=== PATIENT | female | born 1985 | race Caucasian/White ===

== ENCOUNTER → 2016-09-05 | Outpatient (CLI) | payer BC, OTHER | LOC: MW.CHOBGYN 08:17 | PROVIDERS: ATTEND Obstetrics & Gynecology | DX: Z34.90 Encounter for supervision of normal pregnancy, unspecified, unspecified trimester (principal) | CPT/HCPCS: 36415; 81003; 82950; 85027 ==

== ENCOUNTER → 2016-10-02 | Outpatient (CLI) | payer BC, OTHER | LOC: MW.CHOBGYN 10:46 | PROVIDERS: ATTEND Obstetrics & Gynecology | DX: R21 Rash and other nonspecific skin eruption (principal) | CPT/HCPCS: 36415; 83789 ==

== ENCOUNTER 2016-10-10 16:15 | Outpatient (CLI) | payer BC, OTHER | END 2016-10-10 18:03 | disposition home or self-care (01) | LOC: MW.OBCHECK 16:15 → MW.OB 16:19 → MW.OBCHECK 18:03 | PROVIDERS: ATTEND Obstetrics & Gynecology | DX: Z34.90 Encounter for supervision of normal pregnancy, unspecified, unspecified trimester (principal); O16.3 Unspecified maternal hypertension, third trimester; Z3A.32 32 weeks gestation of pregnancy | CPT/HCPCS: 36415; 59025; 80076; 81003; 83789 ==

== ENCOUNTER → 2016-10-10 | Outpatient (CLI) | payer BC, OTHER | END | disposition home or self-care (01) | LOC: MW.CHOBGYN 15:27 | PROVIDERS: ATTEND Obstetrics & Gynecology | DX: Z34.90 Encounter for supervision of normal pregnancy, unspecified, unspecified trimester (principal) | CPT/HCPCS: 81003 ==

== ENCOUNTER 2016-10-17 09:14 | Outpatient (CLI) | payer BC, OTHER | END 2016-10-17 11:10 | disposition home or self-care (01) | LOC: MW.OBCHECK 09:14 → MW.OB 09:15 → MW.OBCHECK 11:10 | PROVIDERS: ATTEND Obstetrics & Gynecology | DX: O26.819 Pregnancy related exhaustion and fatigue, unspecified trimester (principal); K83.1 Obstruction of bile duct | CPT/HCPCS: 36415; 59025; 83789 ==

== ENCOUNTER 2016-10-24 09:05 | Outpatient (CLI) | payer OTHER | END 2016-10-24 10:40 | disposition home or self-care (01) | LOC: MW.OBCHECK 09:05 | PROVIDERS: ATTEND Obstetrics & Gynecology | DX: Z34.83 Encounter for supervision of other normal pregnancy, third trimester (principal) | CPT/HCPCS: 59025 ==

== ENCOUNTER → 2016-10-31 | Outpatient (CLI) | payer OTHER | END | disposition home or self-care (01) | LOC: MW.CHOBGYN 15:27 | PROVIDERS: ATTEND Obstetrics & Gynecology | DX: Z34.90 Encounter for supervision of normal pregnancy, unspecified, unspecified trimester (principal) | CPT/HCPCS: 81003; 87081 ==

== ENCOUNTER 2016-11-09 14:28 | Outpatient (CLI) | payer OTHER | END 2016-11-09 15:07 | disposition home or self-care (01) | LOC: MW.OBCHECK 14:28 → MW.OB 14:28 → MW.OBCHECK 15:07 | PROVIDERS: ATTEND Obstetrics & Gynecology | DX: O26.619 Liver and biliary tract disorders in pregnancy, unspecified trimester (principal); K83.1 Obstruction of bile duct | CPT/HCPCS: 36415; 59025; 83789 ==

== ENCOUNTER → 2016-11-09 | Outpatient (CLI) | payer OTHER | LOC: MW.CHOBGYN 15:39 | PROVIDERS: ATTEND Obstetrics & Gynecology | DX: O26.619 Liver and biliary tract disorders in pregnancy, unspecified trimester (principal); K83.1 Obstruction of bile duct | CPT/HCPCS: 83789 ==

== ENCOUNTER 2016-11-24 00:35 | Inpatient (IN) | payer OTHER ==
[2016-11-24] MEDS ORDERED: Water For Irrigation,Sterile 1,000 ML Container IRR PRN (01:42)
[2016-11-24] MEDS ORDERED: Sodium Chloride 0.9% 10 ML Syringe FLUSH PRN (01:42)
[2016-11-24] MEDS ORDERED: Misoprostol 200 MCG Tab PO PRN (01:42)
[2016-11-24] MEDS ORDERED: Butorphanol 1 MG/ML SDV IVPUSH PRN (01:42)
[2016-11-24] MEDS ORDERED: Sodium Chloride 0.9% 2.5 ML Syringe FLUSH PRN (01:42)
[2016-11-24] MEDS ORDERED: Lidocaine 1% 50 ML MDV INJECT PRN (01:42)
[2016-11-24] MEDS ORDERED: Carboprost Tromethamine 250 MCG/1 ML Amp IM PRN (01:42)
[2016-11-24] MEDS ORDERED: Methylergonovine 0.2 MG/1 ML Amp IM PRN (01:42)
[2016-11-24] MEDS ORDERED: Nalbuphine 10 MG/1 ML Vial IVPUSH PRN (01:42)
[2016-11-24] MEDS ORDERED: Oxytocin/Lactated Ringers 30 UNIT/500 ML BAG IV SCH (01:45)
[2016-11-24] MEDS: Lactated Ringers 1,000 ML IV SCH ×3 (02:09→03:43)
--- NOTE | 2016-11-24 02:24 | PCM.LDHP ---
L&D History of Present Illness - General Date of Service: 11/24/16 Admit Problem/Dx: Patient Status Order with Admit Dx/Problem 11/24/16 01:43 Patient Status [ADT] Routine Admission Diagnosis/Problem Admission Diagnosis/Problem Source of Information: Patient History Limitations: Reports: No Limitations - History of Present Illness Improves with: Reports: None Worsens with: Reports: None Associated Symptoms: Reports: N - Related Data Allergies/Adverse Reactions: Allergies Allergy/AdvReac Type Severity Reaction Status Date / Time amoxicillin Allergy Rash Verified 10/10/16 16:45 H&P Review of Systems - Review of Systems: Review Of Systems: See Below General: Reports: No Symptoms HEENT: Reports: No Symptoms Pulmonary: Reports: No Symptoms Cardiovascular: Reports: No Symptoms Gastrointestinal: Reports: No Symptoms Genitourinary: Reports: No Symptoms Musculoskeletal: Reports: No Symptoms Skin: Reports: No Symptoms Psychiatric: Reports: No Symptoms Neurological: Reports: No Symptoms Hematologic/Lymphatic: Reports: No Symptoms Immunologic: Reports: No Symptoms L&D Exam - Exam Exam: See Below - Vital Signs Weight: 70.307 kg - OB Specific Contraction Intensity: Moderate Movement: Active Heart Tones: Present Heart Rate (FHR) Variability: Moderate (6-25 bmp) Presentation: Vertex - Sanchez Score Sanchez Score Cervix Position: Anterior Sanchez Score Effacement: >80% Sanchez Score Dilation: 3-4 cm - Patient Data Lab Results last 24 hrs: Laboratory Results - last 24 hr 11/24/16 Range/Units 02:09 WBC 17.02 H (4.0-11.0) K/uL RBC 3.71 L (4.30-5.90) M/uL Hgb 12.0 (12.0-16.0) g/dL Hct 35.4 L (36.0-46.0) % MCV 95.4 (80.0-98.0) fL MCH 32.3 H (27.0-32.0) pg MCHC 33.9 (31.0-37.0) g/dL RDW Std Deviation 45.1 (28.0-62.0) fl RDW Coeff of Cesar 13 (11.0-15.0) % Plt Count 204 (150-400) K/uL MPV 9.10 (7.40-12.00) fL Result Diagrams: 11/24/16 02:09 Problem List Initiated/Reviewed/Updated: Yes Orders Last 24hrs: Active Orders 24 hr Category Date Time Status Patient Status [ADT] Routine ADT 11/24/16 01:43 Active Heart Tones [RC] CONTINUOUS Care 11/24/16 01:43 Active Non Stress Test [RC] PER UNIT ROUTINE Care 11/24/16 01:43 Active May Shower [RC] ASDIRECTED Care 11/24/16 01:43 Active Notify Provider [RC] PRN Care 11/24/16 01:43 Active Up ad Brigitte [RC] ASDIRECTED Care 11/24/16 01:43 Active Vaginal Exam [RC] PRN Care 11/24/16 01:43 Active Vital Signs [RC] PER UNIT ROUTINE Care 11/24/16 01:43 Active TYPE AND SCREEN [BBK] Routine Lab 11/24/16 02:09 Received Butorphanol [Stadol] Med 11/24/16 01:42 Active 1 mg IVPUSH Q1H PRN Carboprost Tromethamine [Hemabate DS] Med 11/24/16 01:42 Active 250 mcg IM ASDIRECTED PRN Lactated Ringers [Ringers, Lactated] 1,000 ml Med 11/24/16 01:45 Active IV ASDIRECTED Lidocaine 1% [Xylocaine 1%] Med 11/24/16 01:42 Active 50 ml INJECT .ONCE PRN Methylergonovine [Methergine] Med 11/24/16 01:42 Active 0.2 mg IM ASDIRECTED PRN Misoprostol [Cytotec] Med 11/24/16 01:42 Active 200 mcg PO .ONCE PRN Nalbuphine [Nubain] Med 11/24/16 01:42 Active 10 mg IVPUSH Q1H PRN Oxytocin/Lactated Ringers [Pitocin in LR 30 Units/500 Med 11/24/16 01:45 Active ML] 30 unit in 500 ml IV TITRATE Sodium Chloride 0.9% [Saline Flush] Med 11/24/16 01:42 Active 10 ml FLUSH ASDIRECTED PRN Sodium Chloride 0.9% [Saline Flush] Med 11/24/16 01:42 Active 2.5 ml FLUSH ASDIRECTED PRN Water For Irrigation,Sterile [Sterile Water for Med 11/24/16 01:42 Active Irrigation] 1,000 ml IRR ASDIRECTED PRN Scalp Electrode [WOMSER] Per Unit Routine Oth 11/24/16 01:43 Ordered Peripheral IV Insertion Adult [OM.PC] Routine Oth 11/24/16 01:43 Ordered Resuscitation Status Routine Resus Stat 11/24/16 01:42 Ordered Medication Orders Butorphanol Tartrate (Stadol) 1 mg IVPUSH Q1H PRN PRN Reason: Pain Carboprost Tromethamine (Hemabate Ds) 250 mcg IM ASDIRECTED PRN PRN Reason: Post Hemorrhage Lactated Ringer's (Ringers, Lactated) 1,000 mls @ 150 mls/hr IV ASDIRECTED LUCINDA Oxytocin/Lactated Ringer's (Pitocin In Lr 30 Units/500 Ml) 30 unit in 500 mls @ 2 mls/hr IV TITRATE LUCINDA; 2 MUNITS/MIN PRN Reason: Protocol Stop: 11/25/16 01:44 Lidocaine HCl (Xylocaine 1%) 50 ml INJECT .ONCE PRN PRN Reason: Laceration repair Methylergonovine Maleate (Methergine) 0.2 mg IM ASDIRECTED PRN PRN Reason: Post Hemorrhage Misoprostol (Cytotec) 200 mcg PO .ONCE PRN PRN Reason: Post Hemorrhage Nalbuphine HCl (Nubain) 10 mg IVPUSH Q1H PRN PRN Reason: Pain (severe 7-10) Stop: 11/24/16 03:43 Sodium Chloride (Saline Flush) 10 ml FLUSH ASDIRECTED PRN PRN Reason: Keep Vein Open Sodium Chloride (Saline Flush) 2.5 ml FLUSH ASDIRECTED PRN PRN Reason: Keep Vein Open Sterile Water (Sterile Water For Irrigation) 1,000 ml IRR ASDIRECTED PRN PRN Reason: delivery Assessment/Plan Comment:: Term in active labor.
--- NOTE | 2016-11-24 02:42 | PCM.PREANE ---
Preanesthetic Assessment - Anesthesia/Transfusion/Family Hx Anesthesia History: No Prior Anesthesia Family History of Anesthesia Reaction: No Transfusion History: No Prior Transfusion(s) - Review of Systems General: No Symptoms Pulmonary: No Symptoms Cardiovascular: No Symptoms Gastrointestinal: No symptoms Neurological: No Symptoms Other: Reports: Thyroid Problems (Evaluated for cholelithiasis during , ruled out by specialist) - Physical Assessment NPO Status Date: 11/24/16 NPO Status Time: 03:20 (cl liquids now) Height: 1.68 m Weight: 70.307 kg ASA Class: 2 Mental Status: Alert & Oriented x3 Dentition: Reports: Normal Dentition Thyro-Mental Finger Breadths: 3 Mouth Opening Finger Breadths: 3 ROM/Head Extension: Full Lungs: Clear to auscultation, Normal respiratory effort Cardiovascular: Regular Rate, Regular Rhythm - Lab Values: Laboratory Last Values WBC 17.02 K/uL (4.0-11.0) H 11/24/16 02:09 RBC 3.71 M/uL (4.30-5.90) L 11/24/16 02:09 Hgb 12.0 g/dL (12.0-16.0) 11/24/16 02:09 Hct 35.4 % (36.0-46.0) L 11/24/16 02:09 MCV 95.4 fL (80.0-98.0) 11/24/16 02:09 MCH 32.3 pg (27.0-32.0) H 11/24/16 02:09 MCHC 33.9 g/dL (31.0-37.0) 11/24/16 02:09 RDW Std Deviation 45.1 fl (28.0-62.0) 11/24/16 02:09 RDW Coeff of Cesar 13 % (11.0-15.0) 11/24/16 02:09 Plt Count 204 K/uL (150-400) 11/24/16 02:09 MPV 9.10 fL (7.40-12.00) 11/24/16 02:09 - Allergies Allergies/Adverse Reactions: Allergies Allergy/AdvReac Type Severity Reaction Status Date / Time amoxicillin Allergy Rash Verified 10/10/16 16:45 - Blood Blood Available: Yes Product(s) Available: PRBC - Acknowledgements Anesthesia Type Planned: Epidural Pt an Appropriate Candidate for the Planned Anesthesia: Yes Alternatives and Risks of Anesthesia Discussed w Pt/Guardian: Yes Pt/Guardian Understands and Agrees with Anesthesia Plan: Yes PreAnesthesia Questionnaire Gastrointestinal History: Reports: Cholelithiasis (Evaluated for cholelithiasis during , ruled out by specialist) 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: , Other (See Below) Other OB/BYN History: possible cholestasis of - CURRENT (IN HOUSE) MEDS Current Meds: Current Medications Butorphanol Tartrate (Stadol) 1 mg IVPUSH Q1H PRN PRN Reason: Pain Carboprost Tromethamine (Hemabate Ds) 250 mcg IM ASDIRECTED PRN PRN Reason: Post Hemorrhage Lactated Ringer's (Ringers, Lactated) 1,000 mls @ 150 mls/hr IV ASDIRECTED LUCINDA Oxytocin/Lactated Ringer's (Pitocin In Lr 30 Units/500 Ml) 30 unit in 500 mls @ 2 mls/hr IV TITRATE LUCINDA; 2 MUNITS/MIN PRN Reason: Protocol Stop: 11/25/16 01:44 Lidocaine HCl (Xylocaine 1%) 50 ml INJECT .ONCE PRN PRN Reason: Laceration repair Methylergonovine Maleate (Methergine) 0.2 mg IM ASDIRECTED PRN PRN Reason: Post Hemorrhage Misoprostol (Cytotec) 200 mcg PO .ONCE PRN PRN Reason: Post Hemorrhage Nalbuphine HCl (Nubain) 10 mg IVPUSH Q1H PRN PRN Reason: Pain (severe 7-10) Stop: 11/24/16 03:43 Sodium Chloride (Saline Flush) 10 ml FLUSH ASDIRECTED PRN PRN Reason: Keep Vein Open Sodium Chloride (Saline Flush) 2.5 ml FLUSH ASDIRECTED PRN PRN Reason: Keep Vein Open Sterile Water (Sterile Water For Irrigation) 1,000 ml IRR ASDIRECTED PRN PRN Reason: delivery - Free Text/Narrative Note: Labor Analgesia/Epidural Procedure start date: 11/24/16 time: 0248 Attending provider aware Chart reviewed Permit signed Labs reviewed VS/ FHR reviewed Pt identified/ID band Pt assessed Risks/Benefits discussed and accepted Monitors in place (BP, HR, SPO2) Patient, Site, Procedure Verification, Pause. Pain "10/10" Fluid bolus infused (fluid type and amount): 1000 ml LR infused with infusion continuing Position: Sitting @ 0252 Prep: Betadine X 3 Sterile Drape Intradermal Wheal: 3 ml 1% Lidocaine Regional placement level: L4-5 Needle: 17 g Tuohy Approach: Midline Technique: MALGORZATA glass syringe w 3 ml Sterile water MALGORZATA needle depth: 6 cm Paresthesia: None Fluid Obtained: None Catheter insertion time: 256 Catheter depth at skin: 20 cm Test Dose Time: 256 RX: 3 ml 1.5% lidocaine with 1:200,000 epi Response: Negative Loading dose Time: 8710-8368 RX: 100 mcg fentanyl followed by 10 ml 0.2% ropivacaine in 2-3 ml increments over 10 minutes Pt position: semi fowlers with MYLES Continuous infusion Start Time: 310 RX: 100 ml 0.2% ropivacaine with 200 mcg fentanyl [2mcg/ml] Continuous infusion rate: 8 ml per hr ENTEROSTOMAL THERAPY NURSE bolus option: 5 ml every 15 min Pt response Post procedure pain level: VS and FHR monitored in unit post placement (See OB traceview for documentation. ) Procedure end date: 11/24/16 time: 331
[2016-11-24] MEDS ORDERED: fentaNYL 100 MCG/2 ML SDV ONE (02:46)
[2016-11-24] MEDS ORDERED: Ropivacaine 0.2% 2 MG/ML 20 ML SDV ONE (02:47)
--- NOTE | 2016-11-24 03:22 | PCM.PREANE ---
Preanesthetic Assessment - Anesthesia/Transfusion/Family Hx Anesthesia History: No Prior Anesthesia Family History of Anesthesia Reaction: No Transfusion History: No Prior Transfusion(s) - Review of Systems General: No Symptoms Pulmonary: No Symptoms Cardiovascular: No Symptoms Gastrointestinal: No symptoms Neurological: No Symptoms Other: Reports: None (Evaluated for cholelithiasis in , ruled out by specialist) - Physical Assessment NPO Status Date: 11/24/16 NPO Status Time: 03:17 (cl liquids) Height: 1.68 m Weight: 70.307 kg ASA Class: 2 Mental Status: Alert & Oriented x3 Airway Class: Mallampati = 3 Dentition: Reports: Normal Dentition Thyro-Mental Finger Breadths: 3 Mouth Opening Finger Breadths: 3 ROM/Head Extension: Full Lungs: Clear to auscultation, Normal respiratory effort Cardiovascular: Regular Rate, Regular Rhythm - Lab Values: Laboratory Last Values WBC 17.02 K/uL (4.0-11.0) H 11/24/16 02:09 RBC 3.71 M/uL (4.30-5.90) L 11/24/16 02:09 Hgb 12.0 g/dL (12.0-16.0) 11/24/16 02:09 Hct 35.4 % (36.0-46.0) L 11/24/16 02:09 MCV 95.4 fL (80.0-98.0) 11/24/16 02:09 MCH 32.3 pg (27.0-32.0) H 11/24/16 02:09 MCHC 33.9 g/dL (31.0-37.0) 11/24/16 02:09 RDW Std Deviation 45.1 fl (28.0-62.0) 11/24/16 02:09 RDW Coeff of Cesar 13 % (11.0-15.0) 11/24/16 02:09 Plt Count 204 K/uL (150-400) 11/24/16 02:09 MPV 9.10 fL (7.40-12.00) 11/24/16 02:09 Blood Type A POSITIVE 11/24/16 02:09 Antibody Screen NEGATIVE 11/24/16 02:09 - Allergies Allergies/Adverse Reactions: Allergies Allergy/AdvReac Type Severity Reaction Status Date / Time amoxicillin Allergy Rash Verified 10/10/16 16:45 - Blood Blood Available: Yes Product(s) Available: PRBC - Acknowledgements Anesthesia Type Planned: Epidural Pt an Appropriate Candidate for the Planned Anesthesia: Yes Alternatives and Risks of Anesthesia Discussed w Pt/Guardian: Yes Pt/Guardian Understands and Agrees with Anesthesia Plan: Yes PreAnesthesia Questionnaire Gastrointestinal History: Reports: Cholelithiasis (Evaluated for during , ruled out by specialist) 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: , Other (See Below) Other OB/BYN History: possible cholestasis of - CURRENT (IN HOUSE) MEDS Current Meds: Current Medications Butorphanol Tartrate (Stadol) 1 mg IVPUSH Q1H PRN PRN Reason: Pain Carboprost Tromethamine (Hemabate Ds) 250 mcg IM ASDIRECTED PRN PRN Reason: Post Hemorrhage Lactated Ringer's (Ringers, Lactated) 1,000 mls @ 150 mls/hr IV ASDIRECTED LUCINDA Last Admin: 11/24/16 03:10 Dose: 999 mls/hr Oxytocin/Lactated Ringer's (Pitocin In Lr 30 Units/500 Ml) 30 unit in 500 mls @ 2 mls/hr IV TITRATE LUCINDA; 2 MUNITS/MIN PRN Reason: Protocol Stop: 11/25/16 01:44 Lidocaine HCl (Xylocaine 1%) 50 ml INJECT .ONCE PRN PRN Reason: Laceration repair Methylergonovine Maleate (Methergine) 0.2 mg IM ASDIRECTED PRN PRN Reason: Post Hemorrhage Misoprostol (Cytotec) 200 mcg PO .ONCE PRN PRN Reason: Post Hemorrhage Nalbuphine HCl (Nubain) 10 mg IVPUSH Q1H PRN PRN Reason: Pain (severe 7-10) Stop: 11/24/16 03:43 Sodium Chloride (Saline Flush) 10 ml FLUSH ASDIRECTED PRN PRN Reason: Keep Vein Open Sodium Chloride (Saline Flush) 2.5 ml FLUSH ASDIRECTED PRN PRN Reason: Keep Vein Open Sterile Water (Sterile Water For Irrigation) 1,000 ml IRR ASDIRECTED PRN PRN Reason: delivery Discontinued Medications Fentanyl (Sublimaze) Confirm Administered Dose 100 mcg .ROUTE .STK-MED ONE Stop: 11/24/16 02:47 Ropivacaine/Fentanyl/NS (Fentanyl 2 Mcg-Ropiv 0.2%-Ns) Confirm Administered Dose 100 mls @ as directed .ROUTE .STK-MED ONE Stop: 11/24/16 02:47 Ropivacaine (Naropin 0.2%) Confirm Administered Dose 20 ml .ROUTE .STK-MED ONE Stop: 11/24/16 02:48
[2016-11-24] MEDS ORDERED: Bisacodyl 10 MG Supp RECTAL PRN (12:12)
[2016-11-24] MEDS ORDERED: Witch Hazel Medicated Pads 40/Jar TOP PRN (12:12)
[2016-11-24] MEDS ORDERED: oxyCODONE 5 MG Tab PO PRN (12:12)
[2016-11-24] MEDS ORDERED: Docusate Sodium 100 MG Cap PO PRN (12:12)
[2016-11-24] MEDS ORDERED: Ibuprofen 400 MG Tab PO PRN (12:12)
[2016-11-24] MEDS ORDERED: Lanolin 100% Cream 7 GM Tube TOP PRN (12:12)
[2016-11-24] MEDS ORDERED: Benzocaine/Menthol 20%-0.5% Spray 78 GM Cannister TOP PRN (12:12)
[2016-11-24] MEDS ORDERED: Acetaminophen 500 MG Tab PO PRN ×2 (12:12)
--- NOTE | 2016-11-24 13:03 | PCM48HPAN ---
Post Anesthesia Note - EVALUATION WITHIN 48HRS OF ANESTHETIC Vital Signs in Normal Range: Yes Patient Participated in Evaluation: Yes Respiratory Function Stable: Yes Airway Patent: Yes Cardiovascular Function Stable: Yes Hydration Status Stable: Yes Pain Control Satisfactory: Yes Nausea and Vomiting Control Satisfactory: Yes Mental Status Recovered: Yes - COMMENTS/OBSERVATIONS Free Text/Narrative:: Pt still in bed post delivery, but states she has good feeling back in her legs and happy with epidural. No apparent anesthesia complications.
[2016-11-24] MEDS: Ibuprofen 800 MG Tab PO PRN ×2 (14:54→22:05)
--- NOTE | 2016-11-24 19:48 | OR ---
SURGEON: Gautam Mike MD DATE OF PROCEDURE: DELIVERY NOTE: Ms. Clark is a 31-year-old patient. She is followed in our clinic. She is 39 weeks plus. Her care was complicated by elevated bile acid, however, she responded to the medication. The patient was admitted early of this morning of November 24 with an active labor. At the time of admission, she was 5 cm complete vertex and 0 to -1 station, intact membranes. The patient was admitted to the hospital. She had epidural anesthesia for labor analgesia. Her heart rate was category one through the entire process of labor. The patient progressed without any problem and she was able to accomplish normal spontaneous vaginal delivery of a male fetus. score reported to be 8 and 8, and the weight was not available at this time. There were two nuchal cords and the placenta delivered spontaneous, complete, and intact without any problem. The patient had no labial or perineal laceration. However, she had a perineal hematoma due to force pushing, it was not expanding and not bleeding, so we would manage it expectantly. Estimated blood loss during was 250 to 300 mL. There were no complication. BARRY / KATYA /[id number]
[2016-11-25] MEDS: Ibuprofen 800 MG Tab PO PRN (08:38)
--- NOTE | 2016-11-25 09:11 | PCM.PNPP ---
- General Info Date of Service: 11/25/16 Functional Status: Reports: pain controlled - Review of Systems General: Reports: No Symptoms HEENT: Reports: no symptoms Pulmonary: Reports: no symptoms Cardiovascular: Reports: No Symptoms Gastrointestinal: Reports: No symptoms Genitourinary: Reports: no symptoms Musculoskeletal: Reports: no symptoms Skin: Reports: no symptoms Neurological: Reports: No Symptoms Psychiatric: Reports: no symptoms - General Info Date of Service: 11/25/16 - Patient Data Vital Signs - most recent: Last Vital Signs Temp 36.4 C 11/25/16 04:00 Pulse 76 11/25/16 04:00 Resp 15 11/25/16 04:00 BP 118/64 11/25/16 04:00 Pulse Ox 100 11/25/16 04:00 Weight - most recent: 70.307 kg Lab Results - last 24 hrs: Laboratory Results - last 24 hr 11/25/16 Range/Units 06:12 Hgb 8.7 L (12.0-16.0) g/dL Hct 26.0 L (36.0-46.0) % Med Orders - Current: Current Medications Acetaminophen (Tylenol Extra Strength) 500 mg PO Q4H PRN PRN Reason: Pain Acetaminophen (Tylenol Extra Strength) 1,000 mg PO Q4H PRN PRN Reason: Pain Benzocaine/Menthol (Dermoplast Pain Relief 20%-0.5% [place]) 78 gm TOP ASDIRECTED PRN PRN Reason: Perineal Comfort Measure Bisacodyl (Dulcolax) 10 mg RECTAL .ONCE PRN PRN Reason: Constipation Docusate Sodium (Colace) 100 mg PO BID PRN PRN Reason: Constipation Last Admin: 11/24/16 22:04 Dose: 100 mg Emollient Ointment (Lansinoh Hpa) 0 gm TOP ASDIRECTED PRN PRN Reason: Sore Nipples Lactated Ringer's (Ringers, Lactated) 1,000 mls @ 150 mls/hr IV ASDIRECTED LUCINDA Last Admin: 11/24/16 03:43 Dose: 150 mls/hr Ibuprofen (Motrin) 400 mg PO Q4H PRN PRN Reason: Pain Ibuprofen (Motrin) 800 mg PO Q6H PRN PRN Reason: Pain Last Admin: 11/25/16 08:38 Dose: 800 mg Oxycodone HCl (Oxycodone) 5 mg PO Q2H PRN PRN Reason: Pain Sodium Chloride (Saline Flush) 10 ml FLUSH ASDIRECTED PRN PRN Reason: Keep Vein Open Sodium Chloride (Saline Flush) 2.5 ml FLUSH ASDIRECTED PRN PRN Reason: Keep Vein Open Witch [place] (Tucks) 1 pad TOP ASDIRECTED PRN PRN Reason: comfort care Discontinued Medications Butorphanol Tartrate (Stadol) 1 mg IVPUSH Q1H PRN PRN Reason: Pain Carboprost Tromethamine (Hemabate Ds) 250 mcg IM ASDIRECTED PRN PRN Reason: Post Hemorrhage Fentanyl (Sublimaze) Confirm Administered Dose 100 mcg .ROUTE .[employer]-MED ONE Stop: 11/24/16 02:47 Oxytocin/Lactated Ringer's (Pitocin In Lr 30 Units/500 Ml) 30 unit in 500 mls @ 2 mls/hr IV TITRATE LUCINDA; 2 MUNITS/MIN PRN Reason: Protocol Stop: 11/25/16 01:44 Last Admin: 11/24/16 12:03 Dose: 999 munits/min, 999 mls/hr Ropivacaine/Fentanyl/NS (Fentanyl 2 Mcg-Ropiv 0.2%-Ns) Confirm Administered Dose 100 mls @ as directed .ROUTE .GetThisMED ONE Stop: 11/24/16 02:47 Lidocaine HCl (Xylocaine 1%) 50 ml INJECT .ONCE PRN PRN Reason: Laceration repair Methylergonovine Maleate (Methergine) 0.2 mg IM ASDIRECTED PRN PRN Reason: Post Hemorrhage Misoprostol (Cytotec) 200 mcg PO .ONCE PRN PRN Reason: Post Hemorrhage Nalbuphine HCl (Nubain) 10 mg IVPUSH Q1H PRN PRN Reason: Pain (severe 7-10) Stop: 11/24/16 03:43 Ropivacaine (Naropin 0.2%) Confirm Administered Dose 20 ml .ROUTE .[employer] Mobile-MED ONE Stop: 11/24/16 02:48 Sterile Water (Sterile Water For Irrigation) 1,000 ml IRR ASDIRECTED PRN PRN Reason: delivery - Infant Interaction Infant Disposition, : in Room with Family Infant Interaction: Holding Infant Infant Feeding: Attempted ; Nursed Fair/Poor Support Person: - Recovery Exam Fundal Tone: Firm Fundal Level: 1 Fingerbreadths Below Umbilicus Fundal Placement: Midline Lochia Amount: Scant Lochia Color: Rubra/Red Perineum Description: Other (see below) Other Perinuem Description: perineum remains grossly swollen Episiotomy/Laceration: None Bladder Status: Voiding - Problem List Review Problem List Initiated/Reviewed/Updated: Yes - My Orders Last 24 Hours: My Active Orders 11/24/16 12:12 Patient Status [ADT] Routine May Shower [RC] ASDIRECTED Up ad Brigitte [RC] ASDIRECTED Acetaminophen [Tylenol Extra Strength] 1,000 mg PO Q4H PRN Acetaminophen [Tylenol Extra Strength] 500 mg PO Q4H PRN Benzocaine/Menthol [Dermoplast Pain Relief 20%-0.5% [place]] 78 gm TOP ASDIRECTED PRN Bisacodyl [Dulcolax] 10 mg RECTAL .ONCE PRN Docusate Sodium [Colace] 100 mg PO BID PRN Ibuprofen [Motrin] 400 mg PO Q4H PRN Ibuprofen [Motrin] 800 mg PO Q6H PRN Lanolin [Lansinoh HPA] See Dose Instructions TOP ASDIRECTED PRN [place] [Tucks] 1 pad TOP ASDIRECTED PRN oxyCODONE 5 mg PO Q2H PRN Assess Lochia [WOMSER] Per Unit Routine Assess Uterine Involution [WOMSER] Per Unit Routine Peripheral IV Discontinue [OM.PC] Routine - Plan Plan:: Term in active labor.
--- NOTE | 2016-11-25 09:12 | PCM.DCSUM1 ---
Discharge Summary - Discharge Data Discharge Date: 11/25/16 Discharge Disposition: Home, Self-Care 01 Condition: Good - Patient Instructions Diet: Usual Diet as Tolerated Activity: As Tolerated Showering/Bathing: October Shower Notify Provider of: Fever, Increased Pain, Swelling and Redness, Nausea and/or Vomiting - Discharge Plan Referrals: [facility] [Outside] Gautam Mike MD [Physician] - 01/05/17 9:30 am - General Info Date of Service: 11/25/16 Functional Status: Reports: pain controlled - Review of Systems General: Reports: No Symptoms HEENT: Reports: no symptoms Pulmonary: Reports: no symptoms Cardiovascular: Reports: No Symptoms Gastrointestinal: Reports: No symptoms Genitourinary: Reports: no symptoms Musculoskeletal: Reports: no symptoms Skin: Reports: no symptoms Neurological: Reports: No Symptoms Psychiatric: Reports: no symptoms - Patient Data Vitals - Most Recent: Last Vital Signs Temp 36.4 C 11/25/16 04:00 Pulse 76 11/25/16 04:00 Resp 15 11/25/16 04:00 BP 118/64 11/25/16 04:00 Pulse Ox 100 11/25/16 04:00 Weight - Most Recent: 70.307 kg Lab Results - Last 24 hrs: Laboratory Results - last 24 hr 11/25/16 Range/Units 06:12 Hgb 8.7 L (12.0-16.0) g/dL Hct 26.0 L (36.0-46.0) % Med Orders - Current: Current Medications Acetaminophen (Tylenol Extra Strength) 500 mg PO Q4H PRN PRN Reason: Pain Acetaminophen (Tylenol Extra Strength) 1,000 mg PO Q4H PRN PRN Reason: Pain Benzocaine/Menthol (Dermoplast Pain Relief 20%-0.5% [place]) 78 gm TOP ASDIRECTED PRN PRN Reason: Perineal Comfort Measure Bisacodyl (Dulcolax) 10 mg RECTAL .ONCE PRN PRN Reason: Constipation Docusate Sodium (Colace) 100 mg PO BID PRN PRN Reason: Constipation Last Admin: 11/24/16 22:04 Dose: 100 mg Emollient Ointment (Lansinoh Hpa) 0 gm TOP ASDIRECTED PRN PRN Reason: Sore Nipples Lactated Ringer's (Ringers, Lactated) 1,000 mls @ 150 mls/hr IV ASDIRECTED LUCINDA Last Admin: 11/24/16 03:43 Dose: 150 mls/hr Ibuprofen (Motrin) 400 mg PO Q4H PRN PRN Reason: Pain Ibuprofen (Motrin) 800 mg PO Q6H PRN PRN Reason: Pain Last Admin: 11/25/16 08:38 Dose: 800 mg Oxycodone HCl (Oxycodone) 5 mg PO Q2H PRN PRN Reason: Pain Sodium Chloride (Saline Flush) 10 ml FLUSH ASDIRECTED PRN PRN Reason: Keep Vein Open Sodium Chloride (Saline Flush) 2.5 ml FLUSH ASDIRECTED PRN PRN Reason: Keep Vein Open [place] (Tucks) 1 pad TOP ASDIRECTED PRN PRN Reason: comfort care Discontinued Medications Butorphanol Tartrate (Stadol) 1 mg IVPUSH Q1H PRN PRN Reason: Pain Carboprost Tromethamine (Hemabate Ds) 250 mcg IM ASDIRECTED PRN PRN Reason: Post Hemorrhage Fentanyl (Sublimaze) Confirm Administered Dose 100 mcg .ROUTE .STK-MED ONE Stop: 11/24/16 02:47 Oxytocin/Lactated Ringer's (Pitocin In Lr 30 Units/500 Ml) 30 unit in 500 mls @ 2 mls/hr IV TITRATE LUCINDA; 2 MUNITS/MIN PRN Reason: Protocol Stop: 11/25/16 01:44 Last Admin: 11/24/16 12:03 Dose: 999 munits/min, 999 mls/hr Ropivacaine/Fentanyl/NS (Fentanyl 2 Mcg-Ropiv 0.2%-Ns) Confirm Administered Dose 100 mls @ as directed .ROUTE .STK-MED ONE Stop: 11/24/16 02:47 Lidocaine HCl (Xylocaine 1%) 50 ml INJECT .ONCE PRN PRN Reason: Laceration repair Methylergonovine Maleate (Methergine) 0.2 mg IM ASDIRECTED PRN PRN Reason: Post Hemorrhage Misoprostol (Cytotec) 200 mcg PO .ONCE PRN PRN Reason: Post Hemorrhage Nalbuphine HCl (Nubain) 10 mg IVPUSH Q1H PRN PRN Reason: Pain (severe 7-10) Stop: 11/24/16 03:43 Ropivacaine (Naropin 0.2%) Confirm Administered Dose 20 ml .ROUTE .morphCARD-[employer] ONE Stop: 11/24/16 02:48 Sterile Water (Sterile Water For Irrigation) 1,000 ml IRR ASDIRECTED PRN PRN Reason: delivery - Exam General: Reports: alert, oriented HEENT: Reports: Pupils equal, Pupils reactive, EOMI, Mucous membr. moist/pink Neck: Reports: supple Lungs: Reports: Clear to auscultation, Normal respiratory effort Cardiovascular: Reports: Regular Rate, Regular Rhythm Abdomen: Reports: bowel sounds present, soft, no tenderness, no distension (Female) Exam: Normal External Exam, Normal Speculum Exam, Normal Bimanual Exam Rectal (Female) Exam: Normal Exam, Normal Rectal Tone Back Exam: Reports: Normal Inspection, Full Range of Motion Extremities: Reports: no edema, normal pulses Skin: Reports: warm, dry, intact Wound/Incisions: Reports: healing well Neurological: Reports: no new focal deficit Psy/Mental Status: Reports: alert, normal affect, normal mood *Q Meaningful Use (DIS) - VTE *Q VTE Criteria *Q: - Stroke *Q Stroke Criteria *Q: - AMI *Q AMI Criteria *Q:
[2016-11-25 09:17] VITALS: BP 109/61
== END 2016-11-25 17:12 | disposition home or self-care (01) | DRG 775 ==
LOC: MW.OBCHECK 00:35 → MW.OB 00:42 → MW.OBCHECK 01:43 → MW.OB 01:59 → OBSVTOIN 12:03 → MW.OB 19:00
PROVIDERS: ADMIT Obstetrics & Gynecology; ATTEND Obstetrics & Gynecology
PROC: 10E0XZZ Delivery of Products of Conception, External Approach (ICD-10-PCS; principal; 2016-11-24)
DX: O80 Encounter for full-term uncomplicated delivery (principal); Z3A.39 39 weeks gestation of pregnancy; Z37.0 Single live birth
CPT/HCPCS: 01967; 36415; 59025; 85014; 85018; 85027; 86850; 86900; 86901; A9270-GY; J7120

== ENCOUNTER 2019-01-31 20:37 | Inpatient (IN) | payer BC ==
[2019-01-31] MEDS ORDERED: Nalbuphine 10 MG/1 ML Vial IVPUSH PRN (20:51)
[2019-01-31] MEDS ORDERED: Water For Irrigation,Sterile 1,000 ML Container IRR PRN (20:51)
[2019-01-31] MEDS ORDERED: Misoprostol 200 MCG Tab PO PRN (20:51)
[2019-01-31] MEDS ORDERED: Tranexamic Acid 1,000 MG in Sodium Chloride 0.9% 100 ML IV PRN (20:51)
[2019-01-31] MEDS ORDERED: Sodium Chloride 0.9% 2.5 ML Syringe FLUSH PRN (20:51)
[2019-01-31] MEDS ORDERED: Butorphanol 1 MG/ML SDV IVPUSH PRN (20:51)
[2019-01-31] MEDS ORDERED: Sodium Chloride 0.9% 10 ML SDV IV PRN (20:51)
[2019-01-31] MEDS ORDERED: Methylergonovine 0.2 MG/1 ML Amp IM PRN (20:51)
[2019-01-31] MEDS ORDERED: Ondansetron 4 MG/2 ML SDV IVPUSH PRN (20:51)
[2019-01-31] MEDS ORDERED: Sodium Chloride 0.9% 10 ML Syringe FLUSH PRN (20:51)
[2019-01-31] MEDS ORDERED: Lidocaine 1% 50 ML MDV INJECT PRN (20:51)
[2019-01-31] MEDS ORDERED: Carboprost Tromethamine 250 MCG/1 ML Amp IM PRN (20:51)
[2019-01-31] MEDS ORDERED: Lactated Ringers 1,000 ML IV SCH (21:00)
[2019-01-31] MEDS ORDERED: Oxytocin/0.9 % Sodium Chloride 30 UNIT/500 ML BAG IV SCH (21:00)
--- NOTE | 2019-01-31 21:44 | PCM.PREANE ---
Preanesthetic Assessment - Anesthesia/Transfusion/Family Hx Anesthesia History: Prior Anesthesia Without Reaction Family History of Anesthesia Reaction: No Transfusion History: No Prior Transfusion(s) - Review of Systems General: No Symptoms Pulmonary: No Symptoms Cardiovascular: No Symptoms Gastrointestinal: No Symptoms Neurological: No Symptoms - Physical Assessment ASA Class: 2 Mental Status: Alert & Oriented x3 Airway Class: Mallampati = 2 Dentition: Reports: Normal Dentition Thyro-Mental Finger Breadths: 3 Mouth Opening Finger Breadths: 3 ROM/Head Extension: Full Lungs: Clear to Auscultation, Normal Respiratory Effort Cardiovascular: Regular Rate, Regular Rhythm - Lab Values: Laboratory Last Values WBC 10.74 K/uL (4.0-11.0) 01/31/19 21:08 RBC 4.02 M/uL (4.30-5.90) L 01/31/19 21:08 Hgb 12.7 g/dL (12.0-16.0) 01/31/19 21:08 Hct 37.0 % (36.0-46.0) 01/31/19 21:08 MCV 92.0 fL (80.0-98.0) 01/31/19 21:08 MCH 31.6 pg (27.0-32.0) 01/31/19 21:08 MCHC 34.3 g/dL (31.0-37.0) 01/31/19 21:08 RDW Std Deviation 44.7 fl (28.0-62.0) 01/31/19 21:08 RDW Coeff of Cesar 14 % (11.0-15.0) 01/31/19 21:08 Plt Count 187 K/uL (150-400) 01/31/19 21:08 MPV 10.10 fL (7.40-12.00) 01/31/19 21:08 - Allergies Allergies/Adverse Reactions: Allergies Allergy/AdvReac Type Severity Reaction Status Date / Time amoxicillin Allergy Rash Verified 11/24/16 04:05 - Acknowledgements Anesthesia Type Planned: Epidural Pt an Appropriate Candidate for the Planned Anesthesia: Yes Alternatives and Risks of Anesthesia Discussed w Pt/Guardian: Yes Pt/Guardian Understands and Agrees with Anesthesia Plan: Yes PreAnesthesia Questionnaire HEENT History: Reports: None Cardiovascular History: Reports: None Respiratory History: Reports: None Gastrointestinal History: Reports: Cholelithiasis (Evaluated for cholelithiasis during , ruled out by specialist), GERD Genitourinary History: Reports: None BLOCK MASON History: Reports: , Other (See Below) : 2 Para: 1 LMP (Approximate): Other OB/BYN History: possible cholestasis of Musculoskeletal History: Reports: None Neurological History: Reports: None Psychiatric History: Reports: None Endocrine/Metabolic History: Reports: Obesity/BMI 30+ Hematologic History: Reports: None Immunologic History: Reports: None Oncologic (Cancer) History: Reports: None Dermatologic History: Reports: None - Infectious Disease History Infectious Disease History: Reports: None - Past Surgical History HEENT Surgical History: Reports: LASIK, Other (See Below) ([place] teeth extraction) - CURRENT (IN HOUSE) MEDS Current Meds: Current Medications Butorphanol Tartrate (Stadol) 1 mg IVPUSH Q1H PRN PRN Reason: Pain Carboprost Tromethamine (Hemabate Ds) 250 mcg IM ASDIRECTED PRN PRN Reason: Post Hemorrhage Lactated Ringer's (Ringers, Lactated) 1,000 mls @ 150 mls/hr IV ASDIRECTED LUCINDA Oxytocin/Sodium Chloride (Oxytocin 30 Unit/500 Ml-Ns) 30 unit in 500 mls @ 555 mls/hr IV TITRATE LUCINDA Tranexamic Acid 1,000 mg/ (Sodium Chloride) 110 mls @ 660 mls/hr IV ONETIME PRN PRN Reason: Bleeding Lidocaine HCl (Xylocaine 1%) 50 ml INJECT ONETIME PRN PRN Reason: Laceration repair Methylergonovine Maleate (Methergine) 0.2 mg IM ASDIRECTED PRN PRN Reason: Post Hemorrhage Misoprostol (Cytotec) 200 mcg PO ONETIME PRN PRN Reason: Post Hemorrhage Nalbuphine HCl (Nubain) 10 mg IVPUSH Q1H PRN PRN Reason: Pain (severe 7-10) Ondansetron HCl (Zofran) 4 mg IVPUSH Q4H PRN PRN Reason: Nausea/Vomiting Sodium Chloride (Saline Flush) 10 ml FLUSH ASDIRECTED PRN PRN Reason: Keep Vein Open Sodium Chloride (Saline Flush) 2.5 ml FLUSH ASDIRECTED PRN PRN Reason: Keep Vein Open Sodium Chloride (Normal Saline) 10 ml IV ASDIRECTED PRN PRN Reason: IV Use Sterile Water (Sterile Water For Irrigation) 1,000 ml IRR ASDIRECTED PRN PRN Reason: delivery
--- NOTE | 2019-02-01 00:09 | PCM.OPNOTE ---
- General Post-Op/Procedure Note Date of Surgery/Procedure: 01/31/19 Operative Procedure(s): spontaneous vaginal delivery. 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
[2019-02-01] MEDS ORDERED: Acetaminophen 500 MG Tab PO PRN (00:14)
[2019-02-01] MEDS ORDERED: diphenhydrAMINE 50 MG Cap PO PRN (00:14)
[2019-02-01] MEDS ORDERED: Lanolin 100% Cream 7 GM Tube TOP PRN (00:14)
[2019-02-01] MEDS ORDERED: Docusate Sodium 100 MG Cap PO PRN (00:14)
[2019-02-01] MEDS ORDERED: Simethicone 80 MG Tab.Chew PO PRN (00:14)
[2019-02-01] MEDS ORDERED: Witch Hazel Medicated Pads 40/Jar TOP PRN (00:14)
[2019-02-01] MEDS ORDERED: Ibuprofen 800 MG Tab PO PRN (00:14)
[2019-02-01] MEDS ORDERED: oxyCODONE 5 MG Tab PO PRN (00:14)
[2019-02-01] MEDS ORDERED: Aluminum Hydroxide/Magnesium Hydroxide/Simethicone Susp 30 ML Cup PO PRN (00:14)
[2019-02-01] MEDS ORDERED: Famotidine 20 MG Tab PO PRN (00:14)
[2019-02-01] MEDS ORDERED: Bisacodyl 10 MG Supp RECTAL PRN (00:14)
[2019-02-01] MEDS ORDERED: Benzocaine/Menthol 20%-0.5% Spray 78 GM Cannister TOP PRN (00:14)
--- NOTE | 2019-02-01 01:51 | OR ---
SURGEON: Michelle Núñez MD DATE OF PROCEDURE: 01/31/2019 OPERATIVE PROCEDURE: 1. Spontaneous vaginal delivery. 2. Repair of 1st degree perineal laceration. PREOPERATIVE DIAGNOSIS: A 33-year-old at 40 weeks 2 days' gestation in labor. POSTOPERATIVE DIAGNOSIS: A 33-year-old at 40 weeks 2 days' gestation in labor. ANESTHESIA: Epidural. PRIMARY SURGEON: Michelle Núñez MD. MANAGER ROOFING: Cece Moraes, 4th year medical student. ESTIMATED BLOOD LOSS: 100 mL. DESCRIPTION OF PROCEDURE: The patient progressed to complete cervical dilation without augmentation of labor. Epidural was in place. She pushed to a spontaneous vaginal delivery of a live male infant in cephalic presentation. score 8 and 9 at 1 and 5 minutes respectively. Weight is pending. The head was delivered followed by the shoulders and the remainder of body. A nuchal cord x1 was reduced after the delivery of the body. The was placed on the maternal abdomen. After 1 minute 30 seconds, the cord was clamped and cut. Pitocin was started for the 3rd stage of labor. The placenta was delivered using the Salazar-Pepe maneuver. Placenta was intact with a 3-vessel cord. Perineum was inspected and a small 1st-degree perineal laceration was noted. This was repaired with 4-0 Vicryl to hemostasis and anatomy. The fundus was firm at the umbilicus with small amount of bleeding. The patient and baby tolerated the procedure without complications. [id number] / MODL /[id number] MTDD
--- NOTE | 2019-02-01 06:09 | PCM48HPAN ---
Post Anesthesia Note - EVALUATION WITHIN 48HRS OF ANESTHETIC Vital Signs in Normal Range: Yes Patient Participated in Evaluation: Yes Respiratory Function Stable: Yes Airway Patent: Yes Cardiovascular Function Stable: Yes Hydration Status Stable: Yes Pain Control Satisfactory: Yes Nausea and Vomiting Control Satisfactory: Yes Mental Status Recovered: Yes Pulse Rate: 69 SaO2: 98 Resp Rate: 16 Blood Pressure: 102/55
--- NOTE | 2019-02-01 09:25 | PCM.PNPP ---
<Cece Moraes - Last Filed: 02/01/19 09:21> - General Info Date of Service: 02/01/19 - Review of Systems General: Reports: No Symptoms. Denies: Fever, Chills HEENT: Reports: No Symptoms. Denies: Headaches Pulmonary: Reports: No Symptoms. Denies: Shortness of Breath Cardiovascular: Reports: No Symptoms. Denies: Chest Pain, Palpitations Gastrointestinal: Reports: Abdominal Pain (mild cramping) Genitourinary: Reports: No Symptoms Musculoskeletal: Reports: No Symptoms Skin: Reports: No Symptoms Neurological: Reports: No Symptoms Psychiatric: Reports: No Symptoms - General Info Date of Service: 02/01/19 - Patient Data Vital Signs - Most Recent: Last Vital Signs Temp 97.3 F 02/01/19 04:20 Pulse 69 02/01/19 06:08 Resp 16 02/01/19 06:08 BP 102/55 L 02/01/19 06:08 Pulse Ox 98 02/01/19 06:08 Weight - Most Recent: 77.111 kg Lab Results - Last 24 Hours: Laboratory Results - last 24 hr 01/31/19 01/31/19 Range/Units 21:08 21:08 WBC 10.74 (4.0-11.0) K/uL RBC 4.02 L (4.30-5.90) M/uL Hgb 12.7 (12.0-16.0) g/dL Hct 37.0 (36.0-46.0) % MCV 92.0 (80.0-98.0) fL MCH 31.6 (27.0-32.0) pg MCHC 34.3 (31.0-37.0) g/dL RDW Std Deviation 44.7 (28.0-62.0) fl RDW Coeff of Cesar 14 (11.0-15.0) % Plt Count 187 (150-400) K/uL MPV 10.10 (7.40-12.00) fL Blood Type A POSITIVE Antibody Screen NEGATIVE Med Orders - Current: Current Medications Acetaminophen (Tylenol Extra Strength) 500 mg PO Q4H PRN PRN Reason: Pain Acetaminophen (Tylenol Extra Strength) 1,000 mg PO Q6H PRN PRN Reason: Pain Al Hydroxide/Mg Hydroxide (Mag-Al Plus) 30 ml PO Q8H PRN PRN Reason: Heartburn Benzocaine/Menthol (Dermoplast Pain Relief 20%-0.5% [place]) 78 gm TOP ASDIRECTED PRN PRN Reason: Perineal Comfort Measure Bisacodyl (Dulcolax) 10 mg RECTAL ONETIME PRN PRN Reason: Constipation Butorphanol Tartrate (Stadol) 1 mg IVPUSH Q1H PRN PRN Reason: Pain Carboprost Tromethamine (Hemabate Ds) 250 mcg IM ASDIRECTED PRN PRN Reason: Post Hemorrhage Diphenhydramine HCl (Benadryl) 50 mg PO BEDTIME PRN PRN Reason: Insomnia Docusate Sodium (Colace) 100 mg PO BID PRN PRN Reason: Constipation Emollient Ointment (Lansinoh Hpa) 0 gm TOP ASDIRECTED PRN PRN Reason: Sore Nipples Famotidine (Pepcid) 20 mg PO BID PRN PRN Reason: Heartburn Lactated Ringer's (Ringers, Lactated) 1,000 mls @ 150 mls/hr IV ASDIRECTED LUCINDA Oxytocin/Sodium Chloride (Oxytocin 30 Unit/500 Ml-Ns) 30 unit in 500 mls @ 555 mls/hr IV TITRATE LUCINDA Tranexamic Acid 1,000 mg/ (Sodium Chloride) 110 mls @ 660 mls/hr IV ONETIME PRN PRN Reason: Bleeding Ibuprofen (Motrin) 800 mg PO Q8H PRN PRN Reason: Pain Lidocaine HCl (Xylocaine 1%) 50 ml INJECT ONETIME PRN PRN Reason: Laceration repair Methylergonovine Maleate (Methergine) 0.2 mg IM ASDIRECTED PRN PRN Reason: Post Hemorrhage Misoprostol (Cytotec) 200 mcg PO ONETIME PRN PRN Reason: Post Hemorrhage Nalbuphine HCl (Nubain) 10 mg IVPUSH Q1H PRN PRN Reason: Pain (severe 7-10) Ondansetron HCl (Zofran) 4 mg IVPUSH Q4H PRN PRN Reason: Nausea/Vomiting Oxycodone HCl (Oxycodone) 5 mg PO Q4H PRN PRN Reason: Pain Simethicone (Simethicone) 80 mg PO Q4H PRN PRN Reason: Gas Sodium Chloride (Saline Flush) 10 ml FLUSH ASDIRECTED PRN PRN Reason: Keep Vein Open Sodium Chloride (Saline Flush) 2.5 ml FLUSH ASDIRECTED PRN PRN Reason: Keep Vein Open Sodium Chloride (Normal Saline) 10 ml IV ASDIRECTED PRN PRN Reason: IV Use Sterile Water (Sterile Water For Irrigation) 1,000 ml IRR ASDIRECTED PRN PRN Reason: delivery Annalisa Arnold (Tucks) 1 pad TOP ASDIRECTED PRN PRN Reason: comfort care Discontinued Medications Fentanyl/Bupivacaine HCl (Mcgkakgf-Tllco-Ys 2 Mcg/Ml-0.125%) Confirm Administered Dose 100 mls @ as directed .ROUTE .STK-MED ONE Stop: 01/31/19 21:47 - Infant Interaction Disposition, : in Room with Family Infant Interaction: Holding Infant Infant Feeding: Breastfed Infant; Nursed Well Support Person: - Recovery Exam Fundal Tone: Firm Fundal Level: At Umbilicus Fundal Placement: Midline Lochia Amount: Small Lochia Color: Rubra/Red Episiotomy/Laceration: Approximated Bladder Status: Voiding Urinary Elimination: Voided - Exam General: Alert, Oriented HEENT: Pupils Equal Neck: Supple Lungs: Clear to Auscultation, Normal Respiratory Effort Cardiovascular: Regular Rate, Regular Rhythm GI/Abdominal Exam: Normal Bowel Sounds, Soft, Non-Tender, No Organomegaly, No Distention, No Abnormal Bruit, No Mass, Pelvis Stable Extremities: Normal Inspection, Normal Range of Motion, Non-Tender, No Pedal Edema, Normal Capillary Refill Skin: Warm, Dry, Intact Neurological: No New Focal Deficit Psy/Mental Status: Alert, Normal Affect, Normal Mood - Problem List Review Problem List Initiated/Reviewed/Updated: Yes - Assessment Assessment:: PPD1 well Pain well controlled minimal lochia rubra - Plan Plan:: Regular diet Pain control PRN Routine care May discharge home tonight, after 24h have passed, if desired <Michelle Núñez - Last Filed: 02/01/19 09:32> - General Info Functional Status: Reports: Pain Controlled, Tolerating Diet, Ambulating, Urinating - Patient Data Vital Signs - Most Recent: Last Vital Signs Temp 36.3 C 02/01/19 04:20 Pulse 69 02/01/19 06:08 Resp 16 02/01/19 06:08 BP 102/55 L 02/01/19 06:08 Pulse Ox 98 02/01/19 06:08 Lab Results - Last 24 Hours: Laboratory Results - last 24 hr 01/31/19 01/31/19 Range/Units 21:08 21:08 WBC 10.74 (4.0-11.0) K/uL RBC 4.02 L (4.30-5.90) M/uL Hgb 12.7 (12.0-16.0) g/dL Hct 37.0 (36.0-46.0) % MCV 92.0 (80.0-98.0) fL MCH 31.6 (27.0-32.0) pg MCHC 34.3 (31.0-37.0) g/dL RDW Std Deviation 44.7 (28.0-62.0) fl RDW Coeff of Cesar 14 (11.0-15.0) % Plt Count 187 (150-400) K/uL MPV 10.10 (7.40-12.00) fL Blood Type A POSITIVE Antibody Screen NEGATIVE Med Orders - Current: Current Medications Acetaminophen (Tylenol Extra Strength) 500 mg PO Q4H PRN PRN Reason: Pain Acetaminophen (Tylenol Extra Strength) 1,000 mg PO Q6H PRN PRN Reason: Pain Al Hydroxide/Mg Hydroxide (Mag-Al Plus) 30 ml PO Q8H PRN PRN Reason: Heartburn Benzocaine/Menthol (Dermoplast Pain Relief 20%-0.5% [place]) 78 gm TOP ASDIRECTED PRN PRN Reason: Perineal Comfort Measure Bisacodyl (Dulcolax) 10 mg RECTAL ONETIME PRN PRN Reason: Constipation Butorphanol Tartrate (Stadol) 1 mg IVPUSH Q1H PRN PRN Reason: Pain Carboprost Tromethamine (Hemabate Ds) 250 mcg IM ASDIRECTED PRN PRN Reason: Post Hemorrhage Diphenhydramine HCl (Benadryl) 50 mg PO BEDTIME PRN PRN Reason: Insomnia Docusate Sodium (Colace) 100 mg PO BID PRN PRN Reason: Constipation Emollient Ointment (Lansinoh Hpa) 0 gm TOP ASDIRECTED PRN PRN Reason: Sore Nipples Famotidine (Pepcid) 20 mg PO BID PRN PRN Reason: Heartburn Lactated Ringer's (Ringers, Lactated) 1,000 mls @ 150 mls/hr IV ASDIRECTED [facility] Oxytocin/Sodium Chloride (Oxytocin 30 Unit/500 Ml-Ns) 30 unit in 500 mls @ 555 mls/hr IV TITRATE [facility] Tranexamic Acid 1,000 mg/ (Sodium Chloride) 110 mls @ 660 mls/hr IV ONETIME PRN PRN Reason: Bleeding Ibuprofen (Motrin) 800 mg PO Q8H PRN PRN Reason: Pain Lidocaine HCl (Xylocaine 1%) 50 ml INJECT ONETIME PRN PRN Reason: Laceration repair Methylergonovine Maleate (Methergine) 0.2 mg IM ASDIRECTED PRN PRN Reason: Post Hemorrhage Misoprostol (Cytotec) 200 mcg PO ONETIME PRN PRN Reason: Post Hemorrhage Nalbuphine HCl (Nubain) 10 mg IVPUSH Q1H PRN PRN Reason: Pain (severe 7-10) Ondansetron HCl (Zofran) 4 mg IVPUSH Q4H PRN PRN Reason: Nausea/Vomiting Oxycodone HCl (Oxycodone) 5 mg PO Q4H PRN PRN Reason: Pain Simethicone (Simethicone) 80 mg PO Q4H PRN PRN Reason: Gas Sodium Chloride (Saline Flush) 10 ml FLUSH ASDIRECTED PRN PRN Reason: Keep Vein Open Sodium Chloride (Saline Flush) 2.5 ml FLUSH ASDIRECTED PRN PRN Reason: Keep Vein Open Sodium Chloride (Normal Saline) 10 ml IV ASDIRECTED PRN PRN Reason: IV Use Sterile Water (Sterile Water For Irrigation) 1,000 ml IRR ASDIRECTED PRN PRN Reason: delivery Witch Catalina (Tucks) 1 pad TOP ASDIRECTED PRN PRN Reason: comfort care Discontinued Medications Fentanyl/Bupivacaine HCl (Fgogmkag-Wbccn-Ej 2 Mcg/Ml-0.125%) Confirm Administered Dose 100 mls @ as directed .ROUTE .STK-MED ONE Stop: 01/31/19 21:47 - Problem List & Annotations (1) Vaginal delivery SNOMED Code(s): 624050652 Code(s): O80 - ENCOUNTER FOR FULL-TERM UNCOMPLICATED DELIVERY Status: Acute Current Visit: Yes - My Orders Last 24 Hours: My Active Orders 01/31/19 20:51 Patient Status [ADT] Routine May Shower [RC] ASDIRECTED Notify Provider [RC] PRN Up ad Brigitte [RC] ASDIRECTED Vital Signs [RC] PER UNIT ROUTINE Butorphanol [Stadol] 1 mg IVPUSH Q1H PRN Carboprost Tromethamine [Hemabate DS] 250 mcg IM ASDIRECTED PRN Lidocaine 1% [Xylocaine 1%] 50 ml INJECT ONETIME PRN Methylergonovine [Methergine] 0.2 mg IM ASDIRECTED PRN Nalbuphine [Nubain] 10 mg IVPUSH Q1H PRN Ondansetron [Zofran] 4 mg IVPUSH Q4H PRN Sodium Chloride 0.9% [Normal Saline] 10 ml IV ASDIRECTED PRN Sodium Chloride 0.9% [Saline Flush] 10 ml FLUSH ASDIRECTED PRN Sodium Chloride 0.9% [Saline Flush] 2.5 ml FLUSH ASDIRECTED PRN Tranexamic Acid [Cyklokapron] 1,000 mg Sodium Chloride 0.9% [Normal Saline] 100 ml IV ONETIME Water For Irrigation,Sterile [Sterile Water for Irrigation] 1,000 ml IRR ASDIRECTED PRN miSOPROStol [Cytotec] 200 mcg PO ONETIME PRN Scalp Electrode [WOMSER] Per Unit Routine Peripheral IV Insertion Adult [OM.PC] Routine Resuscitation Status Routine 01/31/19 21:00 Lactated Ringers [Ringers, Lactated] 1,000 ml IV ASDIRECTED Oxytocin/0.9 % Sodium Chloride [Oxytocin 30 Unit/500 ML-NS] 30 unit in 500 ml IV TITRATE 02/01/19 00:14 Acetaminophen [Tylenol Extra Strength] 1,000 mg PO Q6H PRN Acetaminophen [Tylenol Extra Strength] 500 mg PO Q4H PRN Alum Hydrox/Mag Hydrox/Simeth [Mag-Al Plus] 30 ml PO Q8H PRN Benzocaine/Menthol [Dermoplast Pain Relief 20%-0.5% [place]] 78 gm TOP ASDIRECTED PRN Bisacodyl [Dulcolax] 10 mg RECTAL ONETIME PRN Docusate Sodium [Colace] 100 mg PO BID PRN Famotidine [Pepcid] 20 mg PO BID PRN Ibuprofen [Motrin] 800 mg PO Q8H PRN Lanolin [Lansinoh HPA] See Dose Instructions TOP ASDIRECTED PRN Simethicone 80 mg PO Q4H PRN [place] [Tucks] 1 pad TOP ASDIRECTED PRN diphenhydrAMINE [Benadryl] 50 mg PO BEDTIME PRN oxyCODONE 5 mg PO Q4H PRN 02/01/19 00:19 Patient Status [ADT] Routine May Shower [RC] ASDIRECTED Up ad Brigitte [RC] ASDIRECTED Vital Signs [RC] PER UNIT ROUTINE Assess Lochia [WOMSER] Per Unit Routine Assess Uterine Involution [WOMSER] Per Unit Routine Ice Therapy [OM.PC] Per Unit Routine Perineal Care [OM.PC] Per Unit Routine Peripheral IV Discontinue [OM.PC] Routine Sitz Bath [OM.PC] Per Unit Routine 02/01/19 00:25 Notify Provider Vital Signs [RC] ASDIRECTED 02/01/19 12:00 HEMOGLOBIN/HEMATOCRIT,HH [HEME] Routine 02/01/19 Breakfast Regular Diet [DIET] 02/02/19 00:24 Ready for Discharge [RC] PER UNIT ROUTINE - Plan Plan:: I have seen and examined the patient and agree with the above assessment and plan.
[2019-02-01] MEDS: Acetaminophen 500 MG Tab PO PRN (18:02)
[2019-02-02 05:04] VITALS: PULSE 64
[2019-02-02] MEDS: Acetaminophen 500 MG Tab PO PRN (07:58)
--- NOTE | 2019-02-02 09:24 | PCM.PNPP ---
<Cece Moraes - Last Filed: 02/02/19 09:22> - General Info Date of Service: 02/02/19 Functional Status: Reports: Pain Controlled - Review of Systems General: Reports: No Symptoms. Denies: Fever, Fatigue HEENT: Reports: No Symptoms. Denies: Headaches Pulmonary: Reports: No Symptoms. Denies: Shortness of Breath Cardiovascular: Reports: No Symptoms. Denies: Chest Pain, Palpitations Gastrointestinal: Reports: Abdominal Pain (mild cramping) Genitourinary: Reports: No Symptoms. Denies: Dysuria Musculoskeletal: Reports: No Symptoms Skin: Reports: No Symptoms Neurological: Reports: No Symptoms Psychiatric: Reports: No Symptoms - General Info Date of Service: 02/02/19 - Patient Data Vital Signs - Most Recent: Last Vital Signs Temp 97.4 F 02/02/19 04:35 Pulse 64 02/02/19 04:35 Resp 16 02/02/19 04:35 BP 98/51 L 02/02/19 04:35 Pulse Ox 98 02/02/19 04:35 Weight - Most Recent: 77.111 kg Lab Results - Last 24 Hours: Laboratory Results - last 24 hr 02/01/19 Range/Units 12:25 Hgb 12.1 (12.0-16.0) g/dL Hct 35.5 L (36.0-46.0) % Med Orders - Current: Current Medications Acetaminophen (Tylenol Extra Strength) 500 mg PO Q4H PRN PRN Reason: Pain Acetaminophen (Tylenol Extra Strength) 1,000 mg PO Q6H PRN PRN Reason: Pain Last Admin: 02/02/19 07:58 Dose: 1,000 mg Al Hydroxide/Mg Hydroxide (Mag-Al Plus) 30 ml PO Q8H PRN PRN Reason: Heartburn Benzocaine/Menthol (Dermoplast Pain Relief 20%-0.5% [place]) 78 gm TOP ASDIRECTED PRN PRN Reason: Perineal Comfort Measure Bisacodyl (Dulcolax) 10 mg RECTAL ONETIME PRN PRN Reason: Constipation Butorphanol Tartrate (Stadol) 1 mg IVPUSH Q1H PRN PRN Reason: Pain Carboprost Tromethamine (Hemabate Ds) 250 mcg IM ASDIRECTED PRN PRN Reason: Post Hemorrhage Diphenhydramine HCl (Benadryl) 50 mg PO BEDTIME PRN PRN Reason: Insomnia Docusate Sodium (Colace) 100 mg PO BID PRN PRN Reason: Constipation Emollient Ointment (Lansinoh Hpa) 0 gm TOP ASDIRECTED PRN PRN Reason: Sore Nipples Famotidine (Pepcid) 20 mg PO BID PRN PRN Reason: Heartburn Lactated Ringer's (Ringers, Lactated) 1,000 mls @ 150 mls/hr IV ASDIRECTED LUCINDA Oxytocin/Sodium Chloride (Oxytocin 30 Unit/500 Ml-Ns) 30 unit in 500 mls @ 555 mls/hr IV TITRATE LUCINDA Tranexamic Acid 1,000 mg/ (Sodium Chloride) 110 mls @ 660 mls/hr IV ONETIME PRN PRN Reason: Bleeding Ibuprofen (Motrin) 800 mg PO Q8H PRN PRN Reason: Pain Lidocaine HCl (Xylocaine 1%) 50 ml INJECT ONETIME PRN PRN Reason: Laceration repair Methylergonovine Maleate (Methergine) 0.2 mg IM ASDIRECTED PRN PRN Reason: Post Hemorrhage Misoprostol (Cytotec) 200 mcg PO ONETIME PRN PRN Reason: Post Hemorrhage Nalbuphine HCl (Nubain) 10 mg IVPUSH Q1H PRN PRN Reason: Pain (severe 7-10) Ondansetron HCl (Zofran) 4 mg IVPUSH Q4H PRN PRN Reason: Nausea/Vomiting Oxycodone HCl (Oxycodone) 5 mg PO Q4H PRN PRN Reason: Pain Simethicone (Simethicone) 80 mg PO Q4H PRN PRN Reason: Gas Sodium Chloride (Saline Flush) 10 ml FLUSH ASDIRECTED PRN PRN Reason: Keep Vein Open Sodium Chloride (Saline Flush) 2.5 ml FLUSH ASDIRECTED PRN PRN Reason: Keep Vein Open Sodium Chloride (Normal Saline) 10 ml IV ASDIRECTED PRN PRN Reason: IV Use Sterile Water (Sterile Water For Irrigation) 1,000 ml IRR ASDIRECTED PRN PRN Reason: delivery Witch Catalina (Tucks) 1 pad TOP ASDIRECTED PRN PRN Reason: comfort care Discontinued Medications Fentanyl/Bupivacaine HCl (Ixmvhojf-Nimyq-Hl 2 Mcg/Ml-0.125%) Confirm Administered Dose 100 mls @ as directed .ROUTE .STK-MED ONE Stop: 01/31/19 21:47 - Interaction Disposition, : in Room with Family Interaction: Holding Infant Feeding: Breastfed Infant; Nursed Well Support Person: - Recovery Exam Fundal Tone: Firm Fundal Level: 1 Fingerbreadths Below Umbilicus Fundal Placement: Midline Lochia Amount: Scant Lochia Color: Rubra/Red Perineum Description: Edematous Episiotomy/Laceration: None Bladder Status: Voiding Urinary Elimination: Voided - Exam General: Alert, Oriented HEENT: Pupils Equal Neck: Supple Lungs: Clear to Auscultation, Normal Respiratory Effort Cardiovascular: Regular Rate, Regular Rhythm GI/Abdominal Exam: Normal Bowel Sounds, Soft, Non-Tender, No Organomegaly, No Distention, No Abnormal Bruit, No Mass, Pelvis Stable Extremities: Normal Inspection, Normal Range of Motion, Non-Tender, No Pedal Edema, Normal Capillary Refill Skin: Warm, Dry, Intact Neurological: No New Focal Deficit Psy/Mental Status: Alert, Normal Affect, Normal Mood - Problem List Review Problem List Initiated/Reviewed/Updated: Yes - Assessment Assessment:: PPD2 well Pain well controlled minimal lochia rub Would like to go home today - Plan Plan:: Regular diet Pain control PRN Routine care May discharge to home today <Michelle Núñez - Last Filed: 02/02/19 10:36> - General Info Functional Status: Reports: Tolerating Diet, Ambulating, Urinating - Patient Data Vital Signs - Most Recent: Last Vital Signs Temp 36.6 C 02/02/19 08:00 Pulse 64 02/02/19 04:35 Resp 16 02/02/19 08:00 BP 134/91 H 02/02/19 08:00 Pulse Ox 100 02/02/19 08:00 Lab Results - Last 24 Hours: Laboratory Results - last 24 hr 02/01/19 Range/Units 12:25 Hgb 12.1 (12.0-16.0) g/dL Hct 35.5 L (36.0-46.0) % Med Orders - Current: Current Medications Acetaminophen (Tylenol Extra Strength) 500 mg PO Q4H PRN PRN Reason: Pain Acetaminophen (Tylenol Extra Strength) 1,000 mg PO Q6H PRN PRN Reason: Pain Last Admin: 02/02/19 07:58 Dose: 1,000 mg Al Hydroxide/Mg Hydroxide (Mag-Al Plus) 30 ml PO Q8H PRN PRN Reason: Heartburn Benzocaine/Menthol (Dermoplast Pain Relief 20%-0.5% [place]) 78 gm TOP ASDIRECTED PRN PRN Reason: Perineal Comfort Measure Bisacodyl (Dulcolax) 10 mg RECTAL ONETIME PRN PRN Reason: Constipation Butorphanol Tartrate (Stadol) 1 mg IVPUSH Q1H PRN PRN Reason: Pain Carboprost Tromethamine (Hemabate Ds) 250 mcg IM ASDIRECTED PRN PRN Reason: Post Hemorrhage Diphenhydramine HCl (Benadryl) 50 mg PO BEDTIME PRN PRN Reason: Insomnia Docusate Sodium (Colace) 100 mg PO BID PRN PRN Reason: Constipation Emollient Ointment (Lansinoh Hpa) 0 gm TOP ASDIRECTED PRN PRN Reason: Sore Nipples Famotidine (Pepcid) 20 mg PO BID PRN PRN Reason: Heartburn Lactated Ringer's (Ringers, Lactated) 1,000 mls @ 150 mls/hr IV ASDIRECTED LUCINDA Oxytocin/Sodium Chloride (Oxytocin 30 Unit/500 Ml-Ns) 30 unit in 500 mls @ 555 mls/hr IV TITRATE LUCINDA Tranexamic Acid 1,000 mg/ (Sodium Chloride) 110 mls @ 660 mls/hr IV ONETIME PRN PRN Reason: Bleeding Ibuprofen (Motrin) 800 mg PO Q8H PRN PRN Reason: Pain Lidocaine HCl (Xylocaine 1%) 50 ml INJECT ONETIME PRN PRN Reason: Laceration repair Methylergonovine Maleate (Methergine) 0.2 mg IM ASDIRECTED PRN PRN Reason: Post Hemorrhage Misoprostol (Cytotec) 200 mcg PO ONETIME PRN PRN Reason: Post Hemorrhage Nalbuphine HCl (Nubain) 10 mg IVPUSH Q1H PRN PRN Reason: Pain (severe 7-10) Ondansetron HCl (Zofran) 4 mg IVPUSH Q4H PRN PRN Reason: Nausea/Vomiting Oxycodone HCl (Oxycodone) 5 mg PO Q4H PRN PRN Reason: Pain Simethicone (Simethicone) 80 mg PO Q4H PRN PRN Reason: Gas Sodium Chloride (Saline Flush) 10 ml FLUSH ASDIRECTED PRN PRN Reason: Keep Vein Open Sodium Chloride (Saline Flush) 2.5 ml FLUSH ASDIRECTED PRN PRN Reason: Keep Vein Open Sodium Chloride (Normal Saline) 10 ml IV ASDIRECTED PRN PRN Reason: IV Use Sterile Water (Sterile Water For Irrigation) 1,000 ml IRR ASDIRECTED PRN PRN Reason: delivery Annalisa Arnold (Tucks) 1 pad TOP ASDIRECTED PRN PRN Reason: comfort care Discontinued Medications Fentanyl/Bupivacaine HCl (Bonndwpv-Xmagl-Sk 2 Mcg/Ml-0.125%) Confirm Administered Dose 100 mls @ as directed .ROUTE .ITelagen-MED ONE Stop: 01/31/19 21:47 - Problem List & Annotations (1) Vaginal delivery SNOMED Code(s): 905853752 Code(s): O80 - ENCOUNTER FOR FULL-TERM UNCOMPLICATED DELIVERY Status: Acute Current Visit: Yes - My Orders Last 24 Hours: My Active Orders 02/02/19 00:24 Ready for Discharge [RC] PER UNIT ROUTINE - Plan Plan:: I have seen and examined the patient and agree with the above.
[2019-02-02 09:44] VITALS: BP 134/91
[2019-02-02] MEDS ORDERED: Measles, Mumps & Rubella Vaccine 0.5 ML SDV SUBCUT ONE (11:09)
--- NOTE | 2019-02-06 11:42 | PCM.HP.2 ---
H&P History of Present Illness - General Date of Service: 01/31/19 Admit Problem/Dx: Labor Source of Information: Patient History Limitations: Reports: No Limitations - History of Present Illness Initial Comments - Free Text/Narative: Contractions began earlier today, now q3-5 min. + movement. Denies rupture of membranes, vaginal bleeding. Symptom Onset Date: 01/31/19 Lower Abdomen Pain Score (Numeric/FACES): 6 - Related Data Allergies/Adverse Reactions: Allergies Allergy/AdvReac Type Severity Reaction Status Date / Time amoxicillin Allergy Rash Verified 11/24/16 04:05 Past Medical History HEENT History: Reports: None Cardiovascular History: Reports: None Respiratory History: Reports: None Gastrointestinal History: Reports: Cholelithiasis (Evaluated for cholelithiasis during , ruled out by specialist), GERD Genitourinary History: Reports: None BO[employer] MACHINE History: Reports: , Other (See Below) : 2 Para: 1 (40w2d gestation) Other OB/BYN History: possible cholestasis of Musculoskeletal History: Reports: None Neurological History: Reports: None Psychiatric History: Reports: None Endocrine/Metabolic History: Reports: Obesity/BMI 30+ Hematologic History: Reports: None Immunologic History: Reports: None Oncologic (Cancer) History: Reports: None Dermatologic History: Reports: None - Infectious Disease History Infectious Disease History: Reports: None Other Infectious Disease History: HSV type 1 - Past Surgical History HEENT Surgical History: Reports: LASIK, Other (See Below) ([place] teeth extraction) Social & Family History - Family History Family Medical History: Noncontributory - Tobacco Use Smoking Status *Q: Never Smoker - Alcohol Use Alcohol Use History: No - Recreational Drug Use Recreational Drug Use: No H&P Review of Systems - Review of Systems: Review Of Systems: ROS reveals no pertinent complaints other than HPI. Exam - Exam Exam: See Below - Vital Signs Vital Signs: Last Vital Signs Temp 36.6 C 02/02/19 08:00 Pulse 64 02/02/19 04:35 Resp 16 02/02/19 08:00 BP 134/91 H 02/02/19 08:00 Pulse Ox 100 02/02/19 08:00 Weight: 77.111 kg - Exam General: Alert, Oriented, Cooperative HEENT: Mucosa Moist & [place] Neck: Supple Lungs: Clear to Auscultation, Normal Respiratory Effort Cardiovascular: Regular Rate, Regular Rhythm GI/Abdominal Exam: Soft, Non-Tender (Female) Exam: Cervical Dilatation (/80/-2 per RN) Back Exam: Normal Inspection Extremities: Normal Inspection, No Pedal Edema Skin: Warm, Dry, Intact Neurological: Strength Equal Bilateral, Normal Speech Neuro Extensive - Mental Status: Alert, Oriented x3, Normal Mood/Affect Psychiatric: Alert, Normal Affect, Normal Mood - Patient Data Result Diagrams: 02/01/19 12:25 *Q Meaningful Use (ADM) - VTE *Q VTE Criteria *Q: 0 VTE Mechanical Contraindications *Q: At Risk for Falls VTE Pharmacological Contraindications *Q: Risk of Bleeding - VTE Risk Assess *Q Each Risk Factor Represents 1 Point: None Total Score 1 Point Risk Factors: 0 - Stroke *Q Stroke Criteria *Q: 0 Aspirin Contraindications Stroke *Q: Other (Use Special Inst) Anticoagulation Contraindications Stroke *Q: Medical/Procedure Contrai ( ) Antithrombotic Contraindications Stroke *Q: Medical/Proc Contrain () Thrombolytic/Fibrinolytic Contraindications Stroke *Q: Medical/Proc Contrain ( ) Statin Contraindications Stroke *Q: Medical/Proc Contrain () Rehabilitation Assessment Contraindication *Q: Medical/procedure contrai ( ) - AMI *Q AMI Criteria *Q: 0 Aspirin Contraindications AMI *Q: Medical/Proc Contrain () Thrombolytic/Fibrinolytic Contraindications IV (AMI) *Q: Medical/proc contrain ( ) Statin Contraindications AMI *Q: Medical/Proc Contrain () - Problem List (1) Vaginal delivery SNOMED Code(s): 535391213 ICD Code: O80 - ENCOUNTER FOR FULL-TERM UNCOMPLICATED DELIVERY Status: Acute Problem List Initiated/Reviewed/Updated: Yes Assessment/Plan Comment:: Admit to labor & delivery. Epidural. Augment if needed.
== END 2019-02-02 12:45 | disposition home or self-care (01) | DRG 560 ==
LOC: MW.OB 20:37 → UNDOADMOB 20:37 → MW.OB 23:49 → OBSVTOIN 02-01 00:19 → INTOOBSV 02-01 00:19 → MW.OB 02-01 04:21 → UNDODISIN 02-02 12:45 → PREOBSVTOIN 02-11 11:22
PROVIDERS: ADMIT Obstetrics & Gynecology; ATTEND Obstetrics & Gynecology
PROC: 10E0XZZ Delivery of Products of Conception, External Approach (ICD-10-PCS; principal; 2019-01-31)
PROC: 4A1HXCZ Monitoring of Products of Conception, Cardiac Rate, External Approach (ICD-10-PCS; 2019-01-31)
PROC: 0HQ9XZZ Repair Perineum Skin, External Approach (ICD-10-PCS; 2019-01-31)
DX: O48.0 Post-term pregnancy (principal); O99.214 Obesity complicating childbirth; E66.9 Obesity, unspecified; O70.0 First degree perineal laceration during delivery; O69.81X0 Labor and delivery complicated by cord around neck, without compression, not applicable or unspecified; Z23 Encounter for immunization; Z3A.40 40 weeks gestation of pregnancy; Z37.0 Single live birth
CPT/HCPCS: 01967; 36415; 59025; 59409; 85014; 85018; 85027; 86850; 86900; 86901; 90471; 90707; A9270-GY

== ENCOUNTER 2021-11-28 12:35 | Inpatient (IN) | payer BC ==
[2021-11-28] MEDS ORDERED: Ondansetron 4 MG/2 ML SDV IVPUSH PRN (13:43)
[2021-11-28] MEDS ORDERED: Labetalol 100 MG/20 ML MDV IVPUSH ONE (13:43)
[2021-11-28] MEDS ORDERED: Butorphanol 1 MG/ML SDV IVPUSH PRN (13:43)
[2021-11-28] MEDS ORDERED: Misoprostol 200 MCG Tab PO PRN (13:43)
[2021-11-28] MEDS ORDERED: Methylergonovine 0.2 MG/1 ML Amp IM PRN (13:43)
[2021-11-28] MEDS ORDERED: Sodium Chloride 0.9% 20 ML SDV IV PRN (13:43)
[2021-11-28] MEDS ORDERED: Water For Irrigation,Sterile 1,000 ML Container IRR PRN (13:43)
[2021-11-28] MEDS ORDERED: Tranexamic Acid 1,000 MG in Sodium Chloride 0.9% 100 ML IV PRN (13:43)
[2021-11-28] MEDS ORDERED: Sodium Chloride 0.9% 10 ML Syringe FLUSH PRN (13:43)
[2021-11-28] MEDS ORDERED: Lidocaine 1% 50 ML MDV INJECT PRN (13:43)
[2021-11-28] MEDS ORDERED: Carboprost Tromethamine 250 MCG/1 ML Amp IM PRN (13:43)
[2021-11-28] MEDS ORDERED: Sodium Chloride 0.9% 2.5 ML Syringe FLUSH PRN (13:43)
[2021-11-28] MEDS ORDERED: Oxytocin/0.9 % Sodium Chloride 30 UNIT/500 ML BAG IV SCH ×2 (13:45→15:30)
[2021-11-28] MEDS ORDERED: ePHEDrine 50 MG/ML SDV IVPUSH PRN ×2 (13:58)
[2021-11-28] MEDS ORDERED: Ropivacaine in NACL,ISO-OSM/PF 800 MG in Premix Bag 1 BAG EPIDUR SCH ×2 (14:00)
[2021-11-28] MEDS ORDERED: Terbutaline 1 MG/ML SDV SUBCUT PRN (15:27)
[2021-11-28] MEDS: Lactated Ringers 1,000 ML IV SCH ×3 (15:50→23:46)
[2021-11-28] MEDS: Misoprostol 25 MCG (1/4 of 100 MCG) Tab VAG PRN ×2 (15:50→20:07)
[2021-11-28 16:13] LABS: BLOOD UREA NITROGEN,BUN 9 mg/dL (7.0-18.0); CARBON DIOXIDE,CO2 21.6 mmol/L (21.0-32.0); CHLORIDE,CL 104 mmol/L (98-107); GLUCOSE RANDOM 134 mg/dL (74-106); POTASSIUM,K 3.3 mmol/L (3.5-5.1); SODIUM,NA 137 mmol/L (136-145)
[2021-11-29] MEDS ORDERED: oxyCODONE 5 MG Tab PO PRN (01:18)
[2021-11-29] MEDS ORDERED: Ibuprofen 400 MG Tab PO PRN (01:18)
[2021-11-29] MEDS ORDERED: Benzocaine/Menthol 20%-0.5% Spray 78 GM Cannister TOP PRN (01:18)
[2021-11-29] MEDS ORDERED: Acetaminophen 500 MG Tab PO PRN ×2 (01:18)
[2021-11-29] MEDS ORDERED: Witch Hazel Medicated Pads 40/Jar TOP PRN (01:18)
[2021-11-29] MEDS ORDERED: Lanolin 100% Cream 7 GM Tube TOP PRN (01:18)
[2021-11-29] MEDS ORDERED: Aluminum Hydroxide/Magnesium Hydroxide/Simethicone XS Susp 30 ML Cup PO PRN (01:18)
[2021-11-29] MEDS ORDERED: Docusate Sodium 100 MG Cap PO PRN (01:18)
[2021-11-29] MEDS ORDERED: Bisacodyl 10 MG Supp RECTAL PRN (01:18)
[2021-11-29] MEDS: Ibuprofen 800 MG Tab PO PRN ×3 (01:35→13:55)
[2021-11-30 18:34] VITALS: BP 143/99; PULSE 71
== END 2021-11-30 17:20 | disposition home or self-care (01) | DRG 560 ==
LOC: MW.OBCHECK 12:35 → MW.OB 12:35 → MW.OBCHECK 13:43 → MW.OB 13:43 → OBSVTOIN 11-29 01:03 → MW.OB 11-29 08:23
PROVIDERS: ADMIT Obstetrics & Gynecology; ATTEND Obstetrics & Gynecology
PROC: 10E0XZZ Delivery of Products of Conception, External Approach (ICD-10-PCS; principal; 2021-11-29)
PROC: 3E0P7VZ Introduction of Hormone into Female Reproductive, Via Natural or Artificial Opening (ICD-10-PCS; 2021-11-29)
PROC: 3E0R3BZ Introduction of Anesthetic Agent into Spinal Canal, Percutaneous Approach (ICD-10-PCS; 2021-11-29)
PROC: 00HU33Z Insertion of Infusion Device into Spinal Canal, Percutaneous Approach (ICD-10-PCS; 2021-11-29)
DX: O13.4 Gestational [pregnancy-induced] hypertension without significant proteinuria, complicating childbirth (principal); Z3A.39 39 weeks gestation of pregnancy; Z37.0 Single live birth; Z20.822 Contact with and (suspected) exposure to COVID-19
CPT/HCPCS: 01967; 36415; 51702; 59025; 59409; 80053; 81003; 82803; 84550; 85014; 85018; 85027; 86592; 86850; 86900; 86901; A9270-GY; J2590; J2795; J7120; U0002

== ENCOUNTER 2021-12-03 00:53 | Inpatient (IN) | payer BC ==
[2021-12-03] MEDS ORDERED: Magnesium Sulfate/Water 2 GM in Premix Bag 1 BAG IV ONE ×4 (00:56)
[2021-12-03 01:48] LABS: BLOOD UREA NITROGEN,BUN 11 mg/dL (7.0-18.0); CARBON DIOXIDE,CO2 24.4 mmol/L (21.0-32.0); CHLORIDE,CL 104 mmol/L (98-107); GLUCOSE RANDOM 101 mg/dL (74-106); POTASSIUM,K 3.6 mmol/L (3.5-5.1); SODIUM,NA 139 mmol/L (136-145)
[2021-12-03 01:51] LABS: ESTIMATED GFR > 60.0 ml/min
[2021-12-03] MEDS ORDERED: Calcium Gluconate 10% 1 GM/10 ML SDV IV PRN (04:46)
[2021-12-03] MEDS ORDERED: Magnesium Sulfate/Water 4 GM/100 ML BAG IV ONE (05:47)
[2021-12-03] MEDS ORDERED: Sodium Chloride 0.9% 1,000 ML IV SCH (06:00)
[2021-12-03] MEDS: Magnesium Sulfate/Water 20 GM/500 ML BAG IV SCH ×2 (06:05→16:11)
[2021-12-03] MEDS: Labetalol 100 MG Tab PO SCH ×2 (07:39→16:12)
[2021-12-04] MEDS: Labetalol 100 MG Tab PO SCH ×4 (00:30→23:59)
[2021-12-04] MEDS: Magnesium Sulfate/Water 20 GM/500 ML BAG IV SCH (02:20)
[2021-12-05 00:02] VITALS: BP 144/87; PULSE 75
== END 2021-12-04 23:59 | disposition home or self-care (01) | DRG 561 ==
LOC: MW.ED 00:53 → MW.OB 04:41 → OBSVTOIN 12-04 10:45 → MW.OB 12-04 10:46
PROVIDERS: ADMIT Obstetrics & Gynecology; ATTEND Obstetrics & Gynecology
DX: O14.15 Severe pre-eclampsia, complicating the puerperium (principal); O99.215 Obesity complicating the puerperium; O99.63 Diseases of the digestive system complicating the puerperium; K21.9 Gastro-esophageal reflux disease without esophagitis; Z88.0 Allergy status to penicillin
CPT/HCPCS: 36415; 80053; 81001; 83615; 83735; 84550; 85025; 96365; 96366; 99284; 99284-25; A9270-GY; J3475; J7030